=== PATIENT | female | born 1970 | race Caucasian/White ===

== ENCOUNTER 2019-10-19 19:58 | Emergency (ER) | payer MEDICAID ==
[~2019-10-19] VITALS: Ht 160 cm; Wt 127.3 kg
[2019-10-19 20:59] LABS: URINE HCG NEGATIVE (NEG)
[2019-10-19 21:39] LABS: CLARITY,URINE SLIGHTLY CLOUDY (Clear); COLOR,URINE YELLOW (Yellow); GLUCOSE, URINE NEGATIVE (Neg); KETONES,URINE NEGATIVE (Neg); LEUKOCYTE ESTERASE ,URINE LARGE (Neg); NITRITES, URINE NEGATIVE (Neg); OCCULT BLOOD,URINE SMALL (Neg); PROTEIN,URINE NEGATIVE (Neg); UA COLLECTION TYPE CLN CATCH MIDSTREAM; UROBILINOGEN,URINE 0.2 E.U/dL (0.2-1.0)
[2019-10-19] MEDS ORDERED: ciprofloxacin 250mg tablet PO ONE (22:00)
[2019-10-19] MEDS ORDERED: PHEN-824 PO (22:08)
[2019-10-19] MEDS ORDERED: CIPR-259 PO (22:08)
[2019-10-19 22:18] LABS: RBC,URINE 0-2 /HPF (0-2); WBC,URINE 50-100 /HPF (0-4)
[2019-10-19 22:19] LABS: BACTERIA,URINE 1+ /HPF (Neg); MUCUS STRANDS NONE SEEN /LPF (Neg); SQUAMOUS EPITHELIAL CELL,UR FEW /LPF (FEW)
[2019-10-19 22:29] VITALS: BP 130/78
== END 2019-10-19 22:33 | disposition home or self-care (01) ==
LOC: ER 20:01
DX: N39.0 Urinary tract infection, site not specified (principal); R10.9 Unspecified abdominal pain; R30.9 Painful micturition, unspecified; R30.0 Dysuria; Z87.440 Personal history of urinary (tract) infections; Z88.0 Allergy status to penicillin; Z88.1 Allergy status to other antibiotic agents; Z79.2 Long term (current) use of antibiotics; Z79.899 Other long term (current) drug therapy
CPT/HCPCS: 81001; 81025; 87077; 87088; 87186; 99283

== ENCOUNTER 2021-05-07 18:00 | Emergency (ER) | payer MEDICAID ==
[~2021-05-07] VITALS: Ht 157.5 cm; Wt 143.4 kg
[~2021-05-07 18:00] MED LIST: PHEN-824 PO
[2021-05-07 18:37] VITALS: BP 158/101
[2021-05-07] MEDS ORDERED: CHOL20004 PO (20:02)
[2021-05-07] MEDS ORDERED: MONT10TA21 PO (20:02)
[2021-05-07] MEDS ORDERED: HYDR-3686 PO (20:02)
[2021-05-07] MEDS ORDERED: DIAZ-63 PO (20:02)
[2021-05-07] MEDS ORDERED: CETI10TA15 PO (20:02)
[2021-05-07] MEDS ORDERED: BUPR300T53 PO (20:02)
[2021-05-07] MEDS ORDERED: BUPR-94 PO (20:02)
[2021-05-07] MEDS ORDERED: LURA80TA2 PO (20:02)
[2021-05-07] MEDS ORDERED: DOXE10CA2 PO (20:02)
[2021-05-07] MEDS ORDERED: ATEN-169 PO (20:02)
[2021-05-07] MEDS ORDERED: apixaban 5mg tablet PO SCH (20:55)
[2021-05-07] MEDS ORDERED: apixaban 5mg tablet PO ONE (20:55)
[2021-05-07] MEDS ORDERED: APIX5TAB3 PO (21:06)
[2021-05-07] MEDS ORDERED: ketorolac trometh. 30mg/ml inj. IM ONE (21:30)
== END 2021-05-07 21:54 | disposition home or self-care (01) ==
LOC: ER 18:01
DX: I82.402 Acute embolism and thrombosis of unspecified deep veins of left lower extremity (principal); Z88.0 Allergy status to penicillin; Z88.1 Allergy status to other antibiotic agents
CPT/HCPCS: 93970; 96372; 99284; J1885

== ENCOUNTER 2023-05-16 10:16 | Emergency (ER) | payer MEDICAID ==
[~2023-05-16] VITALS: Ht 157.5 cm; Wt 121.3 kg
[~2023-05-16 10:16] MED LIST changes: +APIX5TAB3 PO; +ATEN-169 PO; +BUPR-94 PO; +BUPR300T53 PO; +CETI10TA15 PO; +CHOL20004 PO; +DIAZ-63 PO; +DOXE10CA2 PO; +HYDR-3686 PO; +LURA80TA2 PO; +MONT-47 PO
[2023-05-16 11:23] LABS: BASOPHILS % (AUTO) 0.9 % (0-1); EOSINOPHILS # (AUTO) 0.3 X10'3 (0-0.9); EOSINOPHILS % (AUTO) 6.2 % (0-6); HEMATOCRIT 40.5 % (35.0-45.0); HEMOGLOBIN 13.6 g/dl (12.0-16.0); LYMPHOCYTES # (AUTO) 1.7 X10'3 (1.1-4.8); MEAN CORPUSCULAR HEMOGLOBIN 29.1 PG (27.0-31.0); MEAN CORPUSCULAR HGB CONC 33.6 g/dL (33.0-36.5); MEAN CORPUSCULAR VOLUME 86.5 FL (78-98); MEAN PLATELET VOLUME 9.3 FL (7.4-10.4); MONOCYTES # (AUTO) 0.4 X10'3 (0-0.9); MONOCYTES % (AUTO) 8.5 % (2-12); NEUTROPHILS # (AUTO) 2.7 X10'3 (1.8-7.7); NEUTROPHILS % (AUTO) 51.4 % (42-75); PLATELET COUNT 304 X10'3 (140-440); RED BLOOD COUNT 4.68 X10'6 (4.20-5.60); RED CELL DISTRIBUTION WIDTH 15.4 % (11.5-14.5); WHITE BLOOD COUNT 5.2 X10'3 (4.5-11.0)
[2023-05-16 11:29] LABS: APTT 28 SECONDS (22-32); INR 0.9 INR; PROTHROMBIN TIME 10.2 SECONDS (9.0-12.0)
[2023-05-16 11:31] LABS: ALANINE AMINOTRANSFERASE 28 U/L (12-78); ALBUMIN 3.7 G/DL (3.4-5.0); ALKALINE PHOSPHATASE 104 IU/L (46-116); ANION GAP 8 (8-16); ASPARTATE AMINO TRANSFERASE 21 U/L (10-37); BILIRUBIN,TOTAL 0.3 MG/DL (0.1-1.0); BLOOD UREA NITROGEN 12 MG/DL (7-18); BUN/CREATININE RATIO 13.6 (10.0-20.0); CALCIUM 8.9 MG/DL (8.5-10.1); CHLORIDE 105 MMOL/L (99-107); CREATININE 0.88 MG/DL (0.40-0.90); GLUCOSE 89 MG/DL (70-104); POTASSIUM 4.1 MMOL/L (3.5-5.1); SODIUM 142 MMOL/L (135-145); TOTAL CARBON DIOXIDE 28.6 MMOL/L (24-32); TOTAL PROTEIN 7.3 G/DL (6.4-8.2); eCRCL 59 ML/MIN; eGFR 67 ML/MIN
[2023-05-16 11:55] LABS: HCG SERUM QL NEGATIVE
[2023-05-16] MEDS ORDERED: iohexol 350MG/ML 100ml bottle IV ONE (12:56)
[2023-05-16] MEDS: cyclobenzaprine 10mg tablet PO ONE (12:57)
[2023-05-16] MEDS: acetaminophen 1,000mg/100ml IV 100 ML IV SCH (14:08)
[2023-05-16] MEDS: LIDOcaine 5% patch TP SCH (14:36)
[2023-05-16 14:40] VITALS: BP 190/97
[2023-05-16] MEDS: LIDOcaine 5% patch TP ONE (14:59)
[2023-05-16] MEDS ORDERED: LIDO700A32 TOP (15:05)
[2023-05-16] MEDS ORDERED: CYCL-1 PO (15:05)
[2023-05-16 15:29] VITALS: PULSE 75; RESP 16; TEMP 97.9; O2SAT 98
== END 2023-05-16 15:34 | disposition home or self-care (01) ==
LOC: ER 10:16
DX: S16.1XXA Strain of muscle, fascia and tendon at neck level, initial encounter (principal); M54.2 Cervicalgia; R79.1 Abnormal coagulation profile; Z88.0 Allergy status to penicillin; Z91.041 Radiographic dye allergy status; Z79.899 Other long term (current) drug therapy; X58.XXXA Exposure to other specified factors, initial encounter; Y93.89 Activity, other specified; Y92.89 Other specified places as the place of occurrence of the external cause; Y99.8 Other external cause status
CPT/HCPCS: 36415; 70450; 70496; 70498; 72040; 80053; 84703; 85025; 85610; 85730; 96374; 99285; J0131; J3490; Q9967

== ENCOUNTER 2023-10-18 01:57 | Emergency (ER) | payer MEDICAID ==
[~2023-10-18] VITALS: Ht 157.5 cm; Wt 127.3 kg
[~2023-10-18 01:57] MED LIST changes: +CYCL-1 PO; +LIDO700A32 TOP
[2023-10-18 02:06] VITALS: TEMP 98.3
[2023-10-18 02:18] LABS: BASOPHILS % (AUTO) 0.4 % (0-1); EOSINOPHILS % (AUTO) 0 % (0-6); HEMATOCRIT 37.4 % (35.0-45.0); HEMOGLOBIN 12.2 g/dl (12.0-16.0); LYMPHOCYTES # (AUTO) 1.3 X10'3 (1.1-4.8); LYMPHOCYTES % (AUTO) 24.2 % (21-51); MEAN CORPUSCULAR HEMOGLOBIN 28.1 PG (27.0-31.0); MEAN CORPUSCULAR HGB CONC 32.7 g/dL (33.0-36.5); MEAN CORPUSCULAR VOLUME 85.9 FL (78-98); MEAN PLATELET VOLUME 8.8 FL (7.4-10.4); MONOCYTES # (AUTO) 0.5 X10'3 (0-0.9); MONOCYTES % (AUTO) 9.2 % (2-12); NEUTROPHILS # (AUTO) 3.5 X10'3 (1.8-7.7); NEUTROPHILS % (AUTO) 66.2 % (42-75); PLATELET COUNT 279 X10'3 (140-440); RED BLOOD COUNT 4.35 X10'6 (4.20-5.60); RED CELL DISTRIBUTION WIDTH 14.6 % (11.5-14.5); WHITE BLOOD COUNT 5.3 X10'3 (4.5-11.0)
[2023-10-18 02:32] LABS: ALANINE AMINOTRANSFERASE 28 U/L (12-78); ALBUMIN 3.3 G/DL (3.4-5.0); ALBUMIN/GLOBULIN RATIO 0.9 (1.1-1.5); ALKALINE PHOSPHATASE 100 IU/L (46-116); ANION GAP 5 (8-16); ASPARTATE AMINO TRANSFERASE 12 U/L (10-37); BILIRUBIN,TOTAL 0.2 MG/DL (0.1-1.0); BLOOD UREA NITROGEN 12 MG/DL (7-18); BUN/CREATININE RATIO 15.6 (10.0-20.0); CALCIUM 8.8 MG/DL (8.5-10.1); CHLORIDE 105 MMOL/L (99-107); CREATININE 0.77 MG/DL (0.40-0.90); GLUCOSE 118 MG/DL (70-104); POTASSIUM 3.4 MMOL/L (3.5-5.1); SODIUM 138 MMOL/L (135-145); TOTAL CARBON DIOXIDE 28.4 MMOL/L (24-32); TOTAL PROTEIN 6.8 G/DL (6.4-8.2); eCRCL 68 ML/MIN; eGFR 79 ML/MIN
[2023-10-18 02:39] LABS: PRO BRAIN NATRIURETIC PEPTIDE 245 PG/ML (0-125)
[2023-10-18 03:28] LABS: D-DIMER 0.52 MG/L FEU (0-0.50)
[2023-10-18] MEDS: ibuprofen tablet 400 MG TABLET PO ONE (03:45)
[2023-10-18] MEDS: hydrOXYzine 25 MG tablet PO ONE (03:51)
[2023-10-18] MEDS ORDERED: glycopyrrolate 0.2mg/ml inj IV ONE (03:55)
[2023-10-18] MEDS ORDERED: HYDR-3965 PO (04:02)
[2023-10-18] MEDS: LORazepam 1 MG tablet PO ONE (04:33)
[2023-10-18] MEDS: HYDROcodone/acetaminophen 5mg/325mg tablet PO ONE (04:33)
[2023-10-18 04:48] VITALS: BP 148/85; PULSE 68; RESP 16; O2SAT 99
== END 2023-10-18 04:52 | disposition home or self-care (01) ==
LOC: ER 01:58
DX: R07.89 Other chest pain (principal); R06.02 Shortness of breath; Z87.448 Personal history of other diseases of urinary system; Z86.718 Personal history of other venous thrombosis and embolism; Z86.16 Personal history of COVID-19; Z88.0 Allergy status to penicillin; Z79.2 Long term (current) use of antibiotics; Z79.899 Other long term (current) drug therapy
CPT/HCPCS: 36415; 71045; 80053; 83880; 84484; 85025; 85379; 93005; 99285